=== PATIENT | female | born 1990 | race Caucasian/White ===

== ENCOUNTER → 2021-01-17 | Outpatient (CLI) | payer OTHER ==
--- NOTE | 2021-01-18 10:26 | RAD ---
DATE: 01/17/2021 2:59 PM EXAM: DIGITAL DIAGNOSTIC LT, BREAST LEFT HISTORY: 30-year-old woman with "fibrocystic changes" on clinical breast exam in the lateral left breast by her referring provider. No discrete palpable lump identified. No family history of breast cancer. Patient has been on control for 9 years. COMPARISON: None Targeted ultrasound of the lateral left breast was performed and with a BB marker on the sonographic finding, a single 2-D and tangential view of the left breast was obtained. FINDINGS: Breast Density: FATTY The Breast Parenchyma is primarily fatty replaced. Breast parenchyma level density A. Targeted ultrasound of the lateral left breast identified an oval parallel orientation circumscribed 6 mm mass superficial left breast at the 2:00 position 7 cm from the nipple with an echogenic cleft. This resembled a benign intramammary lymph node and was not palpable during sonographic evaluation but was assessed further with a tangential view targeted left diagnostic mammogram. The single tangential view left diagnostic mammogram confirm the presence of an oval circumscribed mass with a lucent center consistent with a benign intramammary lymph node corresponding with the sonographic finding as marked at the skin surface. No dominant mass, architectural distortion or suspicious calcification identified in the left breast. IMPRESSION: No mammographic or sonographic evidence of malignancy. BI-RADS CATEGORY: 2 BENIGN FINDING(S) RECOMMENDED FOLLOW-UP: CLIN FOLLOW UP IMAGING CLINICALLY INDICATED Any clinically suspicious finding should be considered for biopsy even in the absence of a suspicious imaging correlate. In the absence of clinically suspicious finding, age-appropriate routine annual mammographic screening is recommended, starting at age 40 in average risk women. PQRS compliance statement: Patient information was entered into a reminder system with a target due date for the next mammogram. Mammography is a sensitive method for finding small breast cancers, but it does not detect them all and is not a substitute for careful clinical examination. A negative mammogram does not negate a clinically suspicious finding and should not result in delay in biopsying a clinically suspicious abnormality. "Our facility is accredited by the [employer] Mammography Program."
== END ==
LOC: US 12:46
PROVIDERS: ATTEND Obstetrics & Gynecology
DX: N60.12 Diffuse cystic mastopathy of left breast (principal)
CPT/HCPCS: 76641; 77065